=== PATIENT | female | born 2000 | race Hispanic/Latino ===

== ENCOUNTER 2021-03-29 20:16 | Emergency (ER) | payer OTHER | END 2021-03-29 20:40 | disposition home or self-care (01) | LOC: ER 20:33 | DX: S41.112A Laceration without foreign body of left upper arm, initial encounter (principal); R50.9 Fever, unspecified; W22.8XXA Striking against or struck by other objects, initial encounter; Y92.008 Other place in unspecified non-institutional (private) residence as the place of occurrence of the external cause | CPT/HCPCS: 99282 ==